=== PATIENT | male | born 1995 | race African-American/Black ===

== ENCOUNTER 2018-11-30 04:12 | Emergency (ER) | payer OTHER ==
[~2018-11-30] VITALS: Ht 190.5 cm; Wt 84.1 kg
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
[2018-11-30] MEDS ORDERED: IBUPROFEN 600 MG TAB PO ONE (07:45)
[2018-11-30] MEDS ORDERED: LIDOCAINE W/EPINEPHRINE 1% 20ML VIAL SC ONE (08:00)
[2018-11-30 08:41] VITALS: BP 115/57
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
== END 2018-11-30 08:58 | disposition home or self-care (01) ==
LOC: M ED 04:12 → EDBD 04:12 → M ED 08:58
DX: S00.83XA Contusion of other part of head, initial encounter (principal); S61.412A Laceration without foreign body of left hand, initial encounter; Y04.8XXA Assault by other bodily force, initial encounter; Y92.89 Other specified places as the place of occurrence of the external cause

== ENCOUNTER 2019-11-02 22:37 | Emergency (ER) | payer OTHER ==
[~2019-11-02] VITALS: Ht 193 cm; Wt 88.6 kg
[2019-11-03] MEDS ORDERED: ANUSOL HC CREAM 30GM TOP STA (01:27)
[2019-11-03] MEDS ORDERED: ANUS2.5C2 TOP (01:38)
[2019-11-03] MEDS ORDERED: COLA100C5 PO (01:38)
[2019-11-03] MEDS ORDERED: DOCUSATE SODIUM 100 MG CAP PO ONE (01:45)
[2019-11-03 01:53] VITALS: BP 121/61
== END 2019-11-03 01:54 | disposition home or self-care (01) ==
LOC: M ED 22:37
DX: K64.8 Other hemorrhoids (principal); F17.200 Nicotine dependence, unspecified, uncomplicated